=== PATIENT | male | born 1970 | race Caucasian/White ===

== ENCOUNTER 2021-07-20 17:24 | Emergency (ER) | payer MEDICAID ==
[~2021-07-20] VITALS: Ht 172.7 cm; Wt 113.4 kg
--- NOTE | 2021-07-20 17:34 | NUR ---
Pt sherwin and placed in the waiting room
[2021-07-20 17:35] VITALS: BP_SYST 136
--- NOTE | 2021-07-20 17:40 | NUR ---
Pt walked in to ER with c/o right ear pain 5/10 and dizziness x1 day. Denies any fevers, cough, congestion or SOB at this time. V/S stable, no acute distress noted.
--- NOTE | 2021-07-20 18:30 | NUR ---
Dr Emery evaluating patient at bedside
[2021-07-20] MEDS ORDERED: ZIT250 PO (19:57)
[2021-07-20] MEDS ORDERED: IBUP-1969 PO (19:57)
[2021-07-20] MEDS ORDERED: LORA10TA7 PO (19:57)
[2021-07-20 20:11] VITALS: BP_SYST 136
--- NOTE | 2021-07-20 20:12 | NUR ---
Patient given written and verbal discharge instructions and verbalizes understanding. ER MD discussed with patient the results and treatment provided. Patient in stable condition. ID arm band removed. Rx of Loratadine, Ibuprofen, Zithromax given. Patient educated on pain management and to follow up with PMD. Pain Scale 2/10 . Opportunity for questions provided and answered. Medication side effect fact sheet provided.
== END 2021-07-20 20:12 | disposition home or self-care (01) ==
LOC: SED 17:24
DX: H65.91 Unspecified nonsuppurative otitis media, right ear (principal); Z79.899 Other long term (current) drug therapy
CPT/HCPCS: 99283

== ENCOUNTER 2021-11-30 20:08 | Emergency (ER) | payer MEDICAID ==
[~2021-11-30] VITALS: Ht 172.7 cm; Wt 113.4 kg
[~2021-11-30 20:08] MED LIST: IBUP-1969 PO; LORA10TA7 PO; ZIT250 PO
[2021-11-30 20:22] VITALS: BP_SYST 130
[2021-11-30] MEDS ORDERED: SULF1TAB48 PO (21:41)
[2021-11-30] MEDS ORDERED: DIPH-TET-PERTUS Vaccine 0.5 ML VIAL (ADACEL) I.M. ONE (21:45)
[2021-11-30 21:57] VITALS: BP_SYST 130
== END 2021-11-30 21:57 | disposition home or self-care (01) ==
LOC: SED 20:08
DX: S91.332A Puncture wound without foreign body, left foot, initial encounter (principal); Z79.899 Other long term (current) drug therapy; W45.0XXA Nail entering through skin, initial encounter; Y93.89 Activity, other specified; Y92.89 Other specified places as the place of occurrence of the external cause; Y99.8 Other external cause status
CPT/HCPCS: 90715; 99283

== ENCOUNTER 2022-02-02 12:57 | Emergency (ER) | payer MEDICAID ==
[~2022-02-02] VITALS: Ht 172.7 cm; Wt 113.4 kg
[~2022-02-02 12:57] MED LIST changes: +SULF1TAB48 PO
[2022-02-02 13:20] VITALS: BP_SYST 130
--- NOTE | 2022-02-02 13:20 | NUR ---
Pt to bed 4 for evaluation.
--- NOTE | 2022-02-02 13:23 | NUR ---
Pt to bed #4 coming from home accompanied with significant other ambulatory with steady gait. Pt is A&Ox4. Skin intact. Pt c/o bilateral flank pain for a couple weeks but states now it is unbearable and rates pain 10/10 non-radiating accompanied with urinary frequency. NKA. Has hx of HTN. No chest pain and no sob. Denies n/v. VSS. bed in lowest position.
--- NOTE | 2022-02-02 13:25 | NUR ---
ER at bedside examining patient.
--- NOTE | 2022-02-02 13:31 | NUR ---
Urine specimen collected and sent to lab.
--- NOTE | 2022-02-02 13:39 | NUR ---
# 20 gauge angiocath placed to left hand. Use of asceptic technique. Opsite placed over site. Blood return noted. Blood for lab drawn from site. Flushed with 10 cc of normal saline. No evidence of infiltration noted. Patient tolerated well.
[2022-02-02 13:49] LABS: BASOPHILS % (AUTO) 0.5 % (0.0-2.0); EOSINOPHILS # (AUTO) 0.1 K/uL (0.0-0.4); EOSINOPHILS % (AUTO) 1.1 % (0.0-4.0); HEMATOCRIT 43.4 % (36-54); HEMOGLOBIN 14.9 g/dL (14.0-18.0); LYMPHOCYTES # (AUTO) 2.3 K/uL (1.0-5.5); LYMPHOCYTES % (AUTO) 33.9 % (20.5-51.5); MEAN CORPUSCULAR HEMOGLOBIN 30 pg (27-31); MEAN CORPUSCULAR HGB CONC 34 % (32-36); MEAN CORPUSCULAR VOLUME 87 fL (79.0-98.0); MONOCYTES # (AUTO) 0.4 K/uL (0.0-1.0); MONOCYTES % (AUTO) 6.3 % (1.7-9.3); NEUTROPHILS % (AUTO) 58.2 % (40.0-70.0); PLATELET COUNT (AUTO) 196 K/uL (130-430); RED BLOOD CELL COUNT(AUTO) 5.02 MIL/uL (4.2-6.2); RED CELL DISTRIBUTION WIDTH 13.6 % (9.0-15.0); WHITE BLOOD COUNT (AUTO) 6.8 K/uL (4.8-10.8)
[2022-02-02 13:51] LABS: BILIRUBIN,URINE NEGATIVE (NEGATIVE); BLOOD, URINE NEGATIVE (NEGATIVE); CLARITY/URINE CLEAR (CLEAR); COLOR,URINE YELLOW (YELLOW); GLUCOSE,URINE 3+ (NEGATIVE); KETONES,URINE NEGATIVE (NEGATIVE); LEUKOCYTE ESTERASE ,URINE NEGATIVE (NEGATIVE); NITRITE, URINE NEGATIVE (NEGATIVE); PROTEIN URINE NEGATIVE (NEGATIVE); UROBILINOGEN,URINE 0.2 (0.2-1.0)
[2022-02-02 14:08] LABS: CALCIUM 8.8 mg/dL (8.4-11.0); CREATININE 0.9 mg/dL (0.55-1.30); POTASSIUM 4.3 mmol/L (3.5-5.1)
[2022-02-02 14:14] LABS: ALBUMIN 3.6 g/dL (3.4-4.8); TOTAL BILIRUBIN 0.3 mg/dL (0.0-1.0)
--- NOTE | 2022-02-02 14:29 | NUR ---
Ultrasound being done at bedside.
[2022-02-02] MEDS ORDERED: NACL 0.9% 1,000 ML IV ONE (14:30)
[2022-02-02] MEDS ORDERED: INSULIN REGULAR, HUMAN 10 UNITS/0.1 ML INJ IVP ONE (14:30)
[2022-02-02] MEDS ORDERED: INSULIN REGULAR, HUMAN 10 UNITS/0.1 ML INJ ONE (15:15)
[2022-02-02] MEDS ORDERED: METF-379 PO (16:30)
--- NOTE | 2022-02-02 16:30 | NUR ---
Accucheck completed and results [id number]. Rosie Hoover notified.
[2022-02-02 18:20] VITALS: BP_SYST 136
--- NOTE | 2022-02-02 18:20 | NUR ---
Patient given written and verbal discharge instructions and verbalizes understanding. ER MD discussed with patient the results and treatment provided. Patient in stable condition. ID arm band removed. IV catheter removed intact and dressing applied, no active bleeding. Rx of Metformin given. Patient educated on pain management and to follow up with PMD. Pain Scale . Opportunity for questions provided and answered. Medication side effect fact sheet provided.
== END 2022-02-02 18:20 | disposition home or self-care (01) ==
LOC: SED 12:57
DX: R10.31 Right lower quadrant pain (principal); R35.89 Other polyuria; R63.1 Polydipsia; I10 Essential (primary) hypertension
CPT/HCPCS: 36415; 76770; 80053; 81003; 83690; 85025; 87086; 96360; 96372; 99284; J1815; J7030

== ENCOUNTER 2024-02-24 20:19 | Emergency (ER) | payer MEDICAID ==
[~2024-02-24] VITALS: Ht 172.7 cm; Wt 115.7 kg
[~2024-02-24 20:19] MED LIST changes: +METF-379 PO
[2024-02-24 20:30] VITALS: BP_SYST 128; PULSE 81; RESP 19; TEMP 97.9; O2SAT 99
[2024-02-24 22:16] LABS: BASOPHILS % (AUTO) 0.2 % (0.0-2.0); EOSINOPHILS # (AUTO) 0.1 K/uL (0.0-0.4); EOSINOPHILS % (AUTO) 0.6 % (0.0-4.0); HEMATOCRIT 42.2 % (36-54); HEMOGLOBIN 14.9 g/dL (14.0-18.0); LYMPHOCYTES # (AUTO) 3.7 K/uL (1.0-5.5); LYMPHOCYTES % (AUTO) 35.4 % (20.5-51.5); MEAN CORPUSCULAR HEMOGLOBIN 30 pg (27-31); MEAN CORPUSCULAR HGB CONC 35 % (32-36); MEAN CORPUSCULAR VOLUME 86 fL (79.0-98.0); MONOCYTES # (AUTO) 0.6 K/uL (0.0-1.0); MONOCYTES % (AUTO) 5.3 % (1.7-9.3); NEUTROPHILS # (AUTO) 6.1 K/uL (1.8-7.7); NEUTROPHILS % (AUTO) 58.5 % (40.0-70.0); PLATELET COUNT (AUTO) 222 K/uL (130-430); RED BLOOD CELL COUNT(AUTO) 4.93 MIL/uL (4.2-6.2); RED CELL DISTRIBUTION WIDTH 13.9 % (9.0-15.0); WHITE BLOOD COUNT (AUTO) 10.4 K/uL (4.8-10.8)
[2024-02-24 22:28] LABS: PROTHROMBIN TIME 10.4 SECS (9.5-12.5)
[2024-02-24] MEDS: NACL 0.9% 1,000 ML IV ONE (22:49)
[2024-02-24] MEDS: KETOROLAC TROMETHAMINE 30 MG VIAL IVP ONE (22:51)
[2024-02-24 23:05] LABS: BILIRUBIN,URINE NEGATIVE (NEGATIVE); BLOOD, URINE NEGATIVE (NEGATIVE); CLARITY/URINE CLEAR (CLEAR); COLOR,URINE YELLOW (YELLOW); GLUCOSE,URINE NEGATIVE (NEGATIVE); KETONES,URINE NEGATIVE (NEGATIVE); LEUKOCYTE ESTERASE ,URINE NEGATIVE (NEGATIVE); NITRITE, URINE NEGATIVE (NEGATIVE); PROTEIN URINE NEGATIVE (NEGATIVE); UROBILINOGEN,URINE 0.2 (0.2-1.0)
[2024-02-24 23:37] LABS: ALBUMIN 3.9 g/dL (3.4-4.8); BILIRUBIN,DIRECT 0.2 mg/dL (0.0-0.3); CALCIUM 8.7 mg/dL (8.4-11.0); CREATININE 0.9 mg/dL (0.55-1.30); POTASSIUM 4.1 mmol/L (3.5-5.1); TOTAL BILIRUBIN 0.7 mg/dL (0.0-1.0); TOTAL PROTEIN, SERUM 7.9 g/dL (6.4-8.3)
[2024-02-24] MEDS ORDERED: IBUP-1971 PO (23:58)
[2024-02-25 00:24] VITALS: BP_SYST 128; PULSE 81; RESP 19; TEMP 97.9; O2SAT 99
== END 2024-02-25 00:17 | disposition home or self-care (01) ==
LOC: SED 20:19
DX: M54.50 Low back pain, unspecified (principal); R10.9 Unspecified abdominal pain; E11.9 Type 2 diabetes mellitus without complications; I10 Essential (primary) hypertension; Z90.49 Acquired absence of other specified parts of digestive tract; Z79.899 Other long term (current) drug therapy; Z79.2 Long term (current) use of antibiotics
CPT/HCPCS: 99285; 74176; 96374; 96361; 80076; 80048; 81001; 82150; 83690; 85025; 85610; 85730; 36415; 83605; 82397; J1885; J7030; 81003